=== PATIENT | male | born 1945 | race Caucasian/White ===

== ENCOUNTER → 2020-10-13 | Outpatient (CLI) | payer MEDICARE, OTHER ==
[~2020-10-13] MED LIST: 24 HOUR ALLER15.8 ML INH; AMIO200 PO; ASPI325 PO; ATOR10 PO; Aspirin EC81 MG PO; CLARITIN10 MG PO; DIGO.25 PO; DULO30 PO; ELIQUIS5 MG PO; ESOM20 PO; FOLI1 PO; LISI20 PO; LISI5 PO; MULTI VITAMIN1 EACH PO; Metoprolol Tar100 MG PO; NASACORT10.8 ML NS; TAMS.4ER PO; THIA100 PO; TRAZ50 PO; XARELTO20 MG PO
== END | disposition home or self-care (01) ==
LOC: PLD 08:21 → LAB SHORT 08:21
DX: R23.4 Changes in skin texture (principal)
CPT/HCPCS: 88305; 88312; 88313

== ENCOUNTER → 2021-03-04 | Outpatient (CLI) | payer MEDICARE, OTHER ==
[2021-03-04 16:08] LABS: Anion Gap 9 mmol/L (6-16); Blood Urea Nitrogen 10 mg/dL (8-24); Bun/Creatinine Ratio 11.5 (12.0-20.0); CO2, Blood 26 mmol/L (21-32); Calcium, Blood 8.4 mg/dL (8.5-10.1); Chloride, Blood 96 mmol/L (98-108); Creatinine, Blood 0.87 mg/dL (0.60-1.20); Glomerular Filtration Rate >60 (60-); Glucose, Blood 107 mg/dL (70-99); Potassium, Blood 4.1 mmol/L (3.5-5.5); Sodium, Blood 131 mmol/L (136-145)
== END ==
LOC: LAB SHORT 15:30 → LAB 15:30
PROVIDERS: Physician Assistant
DX: R22.43 Localized swelling, mass and lump, lower limb, bilateral (principal); R06.00 Dyspnea, unspecified; R06.01 Orthopnea; R05 Cough
CPT/HCPCS: 36415; 80048; 83880

== ENCOUNTER 2021-08-08 15:46 | Emergency (ER) | payer MEDICARE, OTHER ==
[~2021-08-08] VITALS: Ht 172.7 cm; Wt 90.7 kg
[2021-08-08 17:57] LABS: Anion Gap 5 mmol/L (6-16); Blood Urea Nitrogen 11 mg/dL (8-24); Bun/Creatinine Ratio 12.1 (12.0-20.0); CO2, Blood 29 mmol/L (21-32); Calcium, Blood 8.9 mg/dL (8.5-10.1); Chloride, Blood 99 mmol/L (98-108); Creatinine, Blood 0.91 mg/dL (0.60-1.20); Glomerular Filtration Rate >60 (60-); Glucose, Blood 107 mg/dL (70-99); Potassium, Blood 4.1 mmol/L (3.5-5.5); Sodium, Blood 133 mmol/L (136-145)
== END 2021-08-08 19:36 | disposition home or self-care (01) ==
LOC: ER 15:46
PROVIDERS: Physician Assistant
DX: S22.31XA Fracture of one rib, right side, initial encounter for closed fracture (principal); S32.019A Unspecified fracture of first lumbar vertebra, initial encounter for closed fracture; I25.10 Atherosclerotic heart disease of native coronary artery without angina pectoris; I11.0 Hypertensive heart disease with heart failure; I50.22 Chronic systolic (congestive) heart failure; I48.20 Chronic atrial fibrillation, unspecified; N40.0 Benign prostatic hyperplasia without lower urinary tract symptoms; K21.9 Gastro-esophageal reflux disease without esophagitis; Z87.891 Personal history of nicotine dependence; Z79.899 Other long term (current) drug therapy; Z79.01 Long term (current) use of anticoagulants; W18.2XXA Fall in (into) shower or empty bathtub, initial encounter
CPT/HCPCS: 72080; 74177; 80048; A9270; Q9967

== ENCOUNTER → 2021-10-14 | Outpatient (CLI) | payer MEDICARE, OTHER | END | disposition home or self-care (01) | LOC: LAB SHORT 11:24 → LAB 11:24 | DX: C44.319 Basal cell carcinoma of skin of other parts of face (principal) | CPT/HCPCS: 88305 ==

== ENCOUNTER → 2022-03-02 | Outpatient (CLI) | payer MEDICARE, OTHER | END | disposition home or self-care (01) | LOC: PLD 08:36 | DX: D48.5 Neoplasm of uncertain behavior of skin (principal) ==

== ENCOUNTER 2022-11-07 10:22 | Inpatient (IN) | payer MEDICARE, OTHER ==
[~2022-11-07] VITALS: Ht 172.7 cm; Wt 85.4 kg
[2022-11-07 11:36] LABS: BASOPHILS ABSOLUTE AUTO 0.08 K/mm3 (0.00-0.23); BASOPHILS PERCENT AUTO 1 % (0-2); EOSINOPHILS ABSOLUTE AUTO 0.16 K/mm3 (0.00-0.68); EOSINOPHILS PERCENT AUTO 2 % (0-6); Hematocrit 37.4 % (37.0-53.0); Hemoglobin 12.5 g/dL (13.5-17.5); IMMATURE GRAN ABSOLUTE AUTO 0.04 K/mm3 (0.00-0.10); IMMATURE GRAN PERCENT AUTO 1 % (0-1); LYMPHOCYTES ABSOLUTE AUTO 1.05 K/mm3 (0.84-5.20); LYMPHOCYTES PERCENT AUTO 14 % (21-46); MONOCYTES ABSOLUTE AUTO 0.81 K/mm3 (0.16-1.47); MONOCYTES PERCENT AUTO 11 % (4-13); Mean Corpuscular HGB 27.4 pg (26.0-34.0); Mean Corpuscular HGB Conc 33.4 g/dL (31.5-36.5); Mean Corpuscular Volume 82 fL (80-100); Mean Platelet Volume 9.4 fL (9.1-12.4); NEUTROPHILS ABSOLUTE AUTO 5.19 K/mm3 (1.96-9.15); NEUTROPHILS PERCENT AUTO 71 % (41-73); Platelet Count 261 K/mm3 (150-400); RDW Coefficient Variation 14.3 % (11.7-14.2); RDW Standard Deviation 42.7 fL (35.1-46.3); Red Blood Cell Count 4.56 M/mm3 (4.30-5.90); White Blood Cell Count 7.33 K/mm3 (4.00-11.30)
[2022-11-07 11:55] LABS: Magnesium, Blood 1.8 mg/dL (1.6-2.4)
[2022-11-07 12:07] LABS: Source, Urine Clean Catch
[2022-11-07 12:08] LABS: Albumin, Blood 3.5 g/dL (3.4-5.0); Albumin/Globulin Ratio 0.9 (0.8-1.8); Bilirubin, Total 1.2 mg/dL (0.1-1.0); Bun/Creatinine Ratio 10.6 (12.0-20.0); Calcium, Blood 8.7 mg/dL (8.5-10.1); Creatinine, Blood 0.76 mg/dL (0.60-1.20); Globulin, Blood 3.8 g/dL (2.2-4.0); Phosphorus, Blood 3.1 mg/dL (2.5-4.9); Potassium, Blood 4.3 mmol/L (3.5-5.5); Total Protein, Blood 7.3 g/dL (6.4-8.2)
[2022-11-07 12:09] LABS: Appearance, Urine Clear (Clear); Bilirubin, Urine Neg (Neg); Blood, Urine Neg (Neg); Color, Urine Yellow (P-Yellow); Glucose Qualitative, Urine Neg (Neg); Ketones, Urine Neg (Neg); Leukocyte Esterase, Urine Neg (Neg); Nitrite, Urine Neg (Neg); Protein, Urine Neg (Neg); Urobilinogen, Urine NORM (Normal)
[2022-11-07] MEDS ORDERED: [UNRECOGNIZED DRUG - OTHER] TP (13:15)
[2022-11-07] MEDS ORDERED: FLUTICASONE-SA1 EAC1 INH (13:16)
[2022-11-07] MEDS ORDERED: FURO40 PO (13:17)
[2022-11-07] MEDS ORDERED: FOLI1 PO (13:17)
[2022-11-07] MEDS ORDERED: METO100ER PO ×2 (13:19→17:34)
[2022-11-07] MEDS ORDERED: POTASSIUM CHLO20 ME1 PO (13:20)
[2022-11-07 16:59] VITALS: BP 121/71
[2022-11-07] MEDS ORDERED: ATOR10 PO (17:26)
[2022-11-07 17:36] LABS: Bun/Creatinine Ratio 10.2 (12.0-20.0); Calcium, Blood 8.8 mg/dL (8.5-10.1); Creatinine, Blood 0.79 mg/dL (0.60-1.20)
[2022-11-07] MEDS ORDERED: Fibercon625 MG PO (17:37)
[2022-11-07] MEDS ORDERED: B-12500 MC2 PO (17:39)
[2022-11-07] MEDS ORDERED: Vitamin D1000 UNI1 PO (17:40)
--- NOTE | 2022-11-07 18:39 | NUR ---
ADMIT NOTE PATIENT NEW ADMIT TO UNIT FORM ER FOR LOW SODIUM AND AMS. ALERT AND ABLE TO SBA TRANSFER TO BED, VERY UNSTEADY GAIT. SETTLED IN BED, BED ALARM ON. URINAL AND BSC NEARBY. IV THIAMINE STARTED. SPOUSE AND FAMILY PRESENT FOR A COUPLE HOURS. TOLERATING WATER BUT REFUSED CARDIAC DINNER. TELE AFIB IN 90S, ALL OTHER VSS AND WNL. CONFUSED ABOUT WHY HE IS IN HOSPITAL, STUBBORN AND DOES NOT FOLLOW DIRECTIONS. DOES NOT CALL APPROPRIATELY AND ATTEMPTS TO GET OUT OF BED WITHOUT CALLING. TWO ATTEMPTS TO URINATE AT BEDSIDE WITHOUT SUCCESS. MODERATE EDEMA TO BLE. ADMIT HISTORY COMPLETE.
[2022-11-07 20:00] VITALS: BP 117/60
[2022-11-08 02:41] LABS: BASOPHILS ABSOLUTE AUTO 0.07 K/mm3 (0.00-0.23); BASOPHILS PERCENT AUTO 1 % (0-2); EOSINOPHILS ABSOLUTE AUTO 0.11 K/mm3 (0.00-0.68); EOSINOPHILS PERCENT AUTO 2 % (0-6); Hematocrit 34.3 % (37.0-53.0); Hemoglobin 11.7 g/dL (13.5-17.5); IMMATURE GRAN ABSOLUTE AUTO 0.01 K/mm3 (0.00-0.10); IMMATURE GRAN PERCENT AUTO 0 % (0-1); LYMPHOCYTES ABSOLUTE AUTO 1.22 K/mm3 (0.84-5.20); LYMPHOCYTES PERCENT AUTO 18 % (21-46); MONOCYTES ABSOLUTE AUTO 0.81 K/mm3 (0.16-1.47); MONOCYTES PERCENT AUTO 12 % (4-13); Mean Corpuscular HGB 27.7 pg (26.0-34.0); Mean Corpuscular HGB Conc 34.1 g/dL (31.5-36.5); Mean Corpuscular Volume 81 fL (80-100); Mean Platelet Volume 9.2 fL (9.1-12.4); NEUTROPHILS ABSOLUTE AUTO 4.72 K/mm3 (1.96-9.15); NEUTROPHILS PERCENT AUTO 68 % (41-73); Platelet Count 238 K/mm3 (150-400); RDW Coefficient Variation 14.5 % (11.7-14.2); RDW Standard Deviation 42.3 fL (35.1-46.3); Red Blood Cell Count 4.22 M/mm3 (4.30-5.90); White Blood Cell Count 6.94 K/mm3 (4.00-11.30)
[2022-11-08 03:08] LABS: Albumin, Blood 3.2 g/dL (3.4-5.0); Bilirubin, Total 1.2 mg/dL (0.1-1.0); Bun/Creatinine Ratio 9.6 (12.0-20.0); Calcium, Blood 8.3 mg/dL (8.5-10.1); Creatinine, Blood 0.73 mg/dL (0.60-1.20); Globulin, Blood 3.3 g/dL (2.2-4.0); Potassium, Blood 3.8 mmol/L (3.5-5.5); Total Protein, Blood 6.5 g/dL (6.4-8.2)
[2022-11-08 04:00] VITALS: BP 106/58
--- NOTE | 2022-11-08 06:23 | NUR ---
SHIFT SUMMARY PT ALERT, ORIENTATION REMAINS THE SAME; PT UNABLE TO IDENTIFY DATE/TIME OR SITUATION, PLACE. PT ORIENTED TO SELF AND PERSON. PT ABLE TO FOLLOW COMMANDS AND ABLE TO MAKE NEEDS KNOWN MOST OF THE TIME. PT ABLE TO BE REORIENTED BUT REQUIRES REORIENTATION FREQUENTLY. VSS THROUGHOUT SHIFT. PT REMAINS ON RA; SPO2 >96%. PT DENIES CP, PRESSURE OR SOB. PT DENIES N/V, DIZZINESS OR LIGHTHEADNESS. PT UP TO USE RESTROOM FREQUENTLY, ABLE TO VOID BUT W/HX OF BPH IS DIFFICULT AT TIMES. PT GAIT IMPROVED SINCE PREVIOUS SHIFT, PT AMBULATING TO RESTROOM W/MINIMAL ASSISTANCE, SUPERVISION AND CORD MANAGEMENT. NO BM THIS SHIFT. PT NOT USING CALL LIGHT TO VERBALIZE NEEDS, PT UP FREQUENTLY OUT OF BED. BED ALARM ON. PT PULLED HIS IV, NEW IV PLACED AND SINCE PT HAS NOT TRIED TO PULL AT IV. PT SLEPT ON AND OFF THROUGHOUT SHIFT. WILL UPDATE ONCOMING RN.
[2022-11-08 07:47] VITALS: BP 125/85
--- NOTE | 2022-11-08 09:11 | NUR ---
AM NOTE: PATIENT ALERT AND ORIENTED X2-3. FORGETFULL, NOT USING CALL LIGHT. IRRITATED WITH CARES. DENIES NUMBNESS/TINGLING. PERRLA. UP WITH SBA TO BATHROOM. TELE SHOWING AFIB WITH HR 90-100'S. DENIES CHEST PAIN/PRESSURE/PALPITATIONS. BP STABLE. PPP. NO SIGNS OF EDEMA. ON ROOM AIR, LUNGS SOUNDING CLEAR. DENIES COUGH. DENIES ABDOMINAL PAIN/NAUSEA. NOT INTERSETED IN EATING BREAKFAST THIS MORNING. DRINKING SMALL AMOUNTS OF WATER. PATIENT HAVING TROUBLE VOIDING, GOING FREQUENTLY AND ONLY VOIDING SMALL AMOUNTS. PATIENT STATES THIS IS HIS NORMAL AT HOME AND CONFIRMS. BLADDER SCAN DONE THIS MORNING SHOWING 287. BOWEL MOVEMENT X1 THIS MORNING. PATIENT NOT WILLING TO USE URINAL TO VOID AND UNABLE TO USE HAT. AT BEDSIDE THIS MORNING AND UPDATED. SKIN OVERALL C/D/I. WEARING GLASSES. BED ALARM IN PLACE. NS INFUSING PER EMAR.
[2022-11-08 11:01] VITALS: BP 117/91
--- NOTE | 2022-11-08 12:20 | NUR ---
Upon receiving a referral for spiritual care, I visit the patient. Patient tells me about his 42 yrs in [employer], about his falls and bumping into diaz, and about his concerns about his medical condition. He speaks about the differing belief systems that he and his , Yanna, have. She is Sabianist and he is Religious of [employer]. He states that it continue to be a source of friction. I provide empathic listening, a calming presence and therapeutic alliance establishment. Patient responded well and showed signs of an elevated mood. I will cotinue to remain available to patient and family.
[2022-11-08 12:43] VITALS: BP 135/95
--- NOTE | 2022-11-08 12:53 | NUR ---
TRANSFER TO MEDICAL: NO ACUTE CHANGES, SEE PREVIOUS NOTE. NOON VITAL STABLE. CIWA RANGING FROM 2-3. PATIENT REMAINS FORGETFUL/CONFUSED. BED ALARM IN PLACE. ROXANNE AT BESIDE THIS MORNING AND UPDATED ON TRANSFER. NS CONTINUES AT ORDERED RATE. PATIENT TRANSFERRED UP TO MEDICAL VIA WHEELCHAIR WITH ALL PERSONAL BELONGINGS, INCLUDING CELLPHONE. REPORTED OFF TO PRATEEK.
--- NOTE | 2022-11-08 13:54 | NUR ---
PT TX TO ROOM 351 AND PLACED ON CAMERA DUE TO FALL RISK AND PULLING AT IV'S. REPORT RECEIVED FROM RODRICK RN/FRANCI STUDENT RN. PT ARRIVED VIA WC, A/O X 2, ONE ASSIST TO BED. PT ORIENTED TO ROOM AND CALL LIGHT. PT AWAKE AND ALERT IN NO APPARENT DISTRESS. WAS UNABLE TO STATE WHY HE WAS ADMITTED TO HOSPITAL AND DATE AND TIME. PT ORIENTED TO SITUATION AND TIME. PT REFUSED OFFER OF A SNACK HE REPORTED HE HAS NO APPETITE AND DID NOT EAT LUNCH. IV FLUIDS NS RUNNING AT 125.
--- NOTE | 2022-11-08 18:54 | NUR ---
SHIFT SUMMARY: PT A/O X 2, ONE ASSIST DUE TO IV LINES WITH WALKER. PT STEADY ON FEET. PLEASANT AND COOPERATIVE WITH CARE. PT HAS BEEN UP AND DOWN TO THE BATHROOM TODAY, CONTINENT OF URINE. HE DID HAVE 2 EPISODES OF DIARRHEA WHICH HE DID NOT MAKE TO BATHROOM DUE TO URGENCY. IMMODIUM ORDERED BY MD. PT SODIUM 123. PT NOT EATING OR DRINKING FLUIDS WELL. GATORADE GIVEN THIS EVENING. HE DID DRINK ONE FULL ENSURE.
[2022-11-08 19:50] VITALS: BP 115/62
[2022-11-09 04:26] VITALS: BP 126/86
[2022-11-09 04:32] LABS: BASOPHILS ABSOLUTE AUTO 0.06 K/mm3 (0.00-0.23); BASOPHILS PERCENT AUTO 1 % (0-2); EOSINOPHILS ABSOLUTE AUTO 0.14 K/mm3 (0.00-0.68); EOSINOPHILS PERCENT AUTO 2 % (0-6); Hematocrit 35.5 % (37.0-53.0); Hemoglobin 11.8 g/dL (13.5-17.5); IMMATURE GRAN ABSOLUTE AUTO 0.02 K/mm3 (0.00-0.10); IMMATURE GRAN PERCENT AUTO 0 % (0-1); LYMPHOCYTES ABSOLUTE AUTO 1.27 K/mm3 (0.84-5.20); LYMPHOCYTES PERCENT AUTO 18 % (21-46); MONOCYTES ABSOLUTE AUTO 0.69 K/mm3 (0.16-1.47); MONOCYTES PERCENT AUTO 10 % (4-13); Mean Corpuscular HGB 27.4 pg (26.0-34.0); Mean Corpuscular HGB Conc 33.2 g/dL (31.5-36.5); Mean Corpuscular Volume 82 fL (80-100); Mean Platelet Volume 9.3 fL (9.1-12.4); NEUTROPHILS ABSOLUTE AUTO 4.76 K/mm3 (1.96-9.15); NEUTROPHILS PERCENT AUTO 69 % (41-73); Platelet Count 250 K/mm3 (150-400); RDW Coefficient Variation 14.5 % (11.7-14.2); RDW Standard Deviation 43.3 fL (35.1-46.3); Red Blood Cell Count 4.31 M/mm3 (4.30-5.90); White Blood Cell Count 6.94 K/mm3 (4.00-11.30)
[2022-11-09 04:56] LABS: Bun/Creatinine Ratio 7.8 (12.0-20.0); Calcium, Blood 8.5 mg/dL (8.5-10.1); Creatinine, Blood 0.77 mg/dL (0.60-1.20); Potassium, Blood 3.9 mmol/L (3.5-5.5)
--- NOTE | 2022-11-09 06:02 | NUR ---
A/OX3-4 (ANSWERED ALL QUESTIONS CORRECTLY AT SHIFT START); FORGETFUL, INTERMITTENTLY WORSE CONFUSION (FLUCTUATES), COOPERATIVE CURRENTLY, IRRITABLE AT TIMES. DENIES PAIN / DENIES FEELING NAUSEATED. TELE: A-FIB 70s 1X ASSIST TO BATHROOM. SLEEP PROMOTED. CALL LIGHT IN REACH; ENCOURAGED TO MAKE NEEDS KNOWN. BED ALARM SET.
[2022-11-09 07:48] VITALS: BP 121/77
[2022-11-09 15:06] VITALS: BP 128/82
--- NOTE | 2022-11-09 16:46 | NUR ---
Vicki is lying in bed and alert. Patient's spouse, Yanna, is bedside. THey both talk at length about their lives, their hobbies and the patient's frustration that he has to stay another night in the hospital. I provide therapeutic listening and a calming spirit. PAtient and Yanna responded well and showed signs of elevated moods.
[2022-11-09 19:47] VITALS: BP 117/75
--- NOTE | 2022-11-09 20:07 | NUR ---
SHIFT SUMMARY: PT A/O X 2-3, STANDBY ASSIST, PLEASANT AND COOPERATIVE WITH CARES. PT HAS POOR APPETITE AND DRINKS MINIMAL AMOUNT OF FLUIDS. PT GIVEN GATORADE AND ENCOURAGED TO DRINK THROUGHOUT THE DAY. NS RUNNING AT 150 ML/HR CURRENTLY. NO EVENTS OF DIARRHEA TODAY.
[2022-11-10 02:07] VITALS: BP 141/118
--- NOTE | 2022-11-10 05:16 | NUR ---
PATIENT IS ALERT AND ORIENTED X3, NOT TO DATE. MENTAION IS CLEARING UP PER DAY NURSE. NO INCREASE IN CIWA SCORE, REMIANED AT THREE ALL NIGHT. LUNGS ARE CLEAR BUT DIM, TELE AFIB WITH A 2.16 SEC PAUSE, ASYMPTMATIC. UP WITH STAND BY ASSIST TO MANAGE LINES. IV INFUSING NS AT 150. NO OTHER ISSUES TO REPORT.
[2022-11-10 07:19] VITALS: BP 154/87
[2022-11-10 08:22] LABS: BASOPHILS ABSOLUTE AUTO 0.06 K/mm3 (0.00-0.23); BASOPHILS PERCENT AUTO 1 % (0-2); EOSINOPHILS ABSOLUTE AUTO 0.11 K/mm3 (0.00-0.68); EOSINOPHILS PERCENT AUTO 2 % (0-6); Hemoglobin 11.3 g/dL (13.5-17.5); IMMATURE GRAN ABSOLUTE AUTO 0.03 K/mm3 (0.00-0.10); IMMATURE GRAN PERCENT AUTO 0 % (0-1); LYMPHOCYTES PERCENT AUTO 16 % (21-46); MONOCYTES ABSOLUTE AUTO 0.62 K/mm3 (0.16-1.47); MONOCYTES PERCENT AUTO 9 % (4-13); Mean Corpuscular HGB Conc 33.2 g/dL (31.5-36.5); Mean Corpuscular Volume 84 fL (80-100); Mean Platelet Volume 9.4 fL (9.1-12.4); NEUTROPHILS ABSOLUTE AUTO 4.86 K/mm3 (1.96-9.15); NEUTROPHILS PERCENT AUTO 72 % (41-73); Platelet Count 222 K/mm3 (150-400); RDW Standard Deviation 46.3 fL (35.1-46.3); Red Blood Cell Count 4.04 M/mm3 (4.30-5.90); White Blood Cell Count 6.78 K/mm3 (4.00-11.30)
[2022-11-10 08:45] LABS: Albumin, Blood 3.3 g/dL (3.4-5.0); Albumin/Globulin Ratio 0.9 (0.8-1.8); Bilirubin, Total 1.2 mg/dL (0.1-1.0); Bun/Creatinine Ratio 5.3 (12.0-20.0); Calcium, Blood 8.2 mg/dL (8.5-10.1); Creatinine, Blood 0.75 mg/dL (0.60-1.20); Globulin, Blood 3.6 g/dL (2.2-4.0); Potassium, Blood 3.8 mmol/L (3.5-5.5); Thyroid Stimulating Hormone 3.82 uIU/mL (0.360-4.800); Total Protein, Blood 6.9 g/dL (6.4-8.2)
[2022-11-10] MEDS ORDERED: SODCHL1 PO (12:03)
[2022-11-10] MEDS ORDERED: POLYTRIM EYE DR10 M1 BOTHEYES (12:04)
--- NOTE | 2022-11-10 12:58 | NUR ---
DISCHARGE: PT D/C AT 1300 VIA WHEELCHAIR WITH AND SON. BOTH IV REMOVED W/O COMPLICATIONS. TELE SENT BACK. MEDICATIONS FAXED TO [facility]. ALL BELONGINGS SENT WITH PT.
--- NOTE | 2022-11-10 20:15 | NUR ---
PATIENT WAS DISCHARGED VIA WHEELCHAIR, WITH FAMILY AND BELONGINGS AT SIDE. DISCHARGE PAPERWORK AND EDUCATION WAS COMEPLETED, IV'S WERE OUT, AND PATIENT WAS IN GOOD SPIRITS TO LEAVE. UNIT CHARGE ESCORTED PATIENT OND FAMILY TO CAR. NO OTHER ISSUES TO REPORT.
== END 2022-11-10 12:56 | disposition home or self-care (01) | DRG 640 ==
LOC: ER 10:22 → ERHOLD 13:44 → PCU 16:43 → MEDS 11-08 12:37 → ENPENDDIS 11-10 11:57 → MEDS 11-10 12:56
PROVIDERS: Physician Assistant; ADMIT Internal Medicine
PROC: HZ2ZZZZ Detoxification Services for Substance Abuse Treatment (ICD-10-PCS; principal; 2022-11-07)
DX: E87.1 Hypo-osmolality and hyponatremia (principal); G93.41 Metabolic encephalopathy; I48.20 Chronic atrial fibrillation, unspecified; I50.32 Chronic diastolic (congestive) heart failure; F10.20 Alcohol dependence, uncomplicated; I25.10 Atherosclerotic heart disease of native coronary artery without angina pectoris; I11.0 Hypertensive heart disease with heart failure; N40.0 Benign prostatic hyperplasia without lower urinary tract symptoms; F41.9 Anxiety disorder, unspecified; F32.A Depression, unspecified; K21.9 Gastro-esophageal reflux disease without esophagitis; D64.9 Anemia, unspecified; I87.2 Venous insufficiency (chronic) (peripheral); Y90.0 Blood alcohol level of less than 20 mg/100 ml; Z87.19 Personal history of other diseases of the digestive system; Z86.010 Personal history of colon polyps; Z90.49 Acquired absence of other specified parts of digestive tract; Z90.89 Acquired absence of other organs; Z98.890 Other specified postprocedural states; Z87.891 Personal history of nicotine dependence; Z88.8 Allergy status to other drugs, medicaments and biological substances; Z79.01 Long term (current) use of anticoagulants; Z79.899 Other long term (current) drug therapy
CPT/HCPCS: 36415; 70450; 80048; 80053; 80400; 81003; 82140; 82533; 83690; 83735; 83930; 83935; 84100; 84295; 84300; 84443; 85025; 94640; 94664; 94760; 94762; 96365; 97116; 97161; 97166; 97530; 99285-25; A9270; G0480; J0834; J3411; J7030; J7050

== ENCOUNTER → 2023-03-16 | Outpatient (CLI) | payer MEDICARE, OTHER ==
[~2023-03-16] MED LIST changes: +B-12500 MC2 PO; +FLUTICASONE-SA1 EAC1 INH; +FURO40 PO; +Fibercon625 MG PO; +METO100ER PO; +POLYTRIM EYE DR10 M1 BOTHEYES; +POTASSIUM CHLO20 ME1 PO; +SODCHL1 PO; +Vitamin D1000 UNI1 PO; +[UNRECOGNIZED DRUG - OTHER] TP
== END ==
LOC: PLD 12:01 → LAB SHORT 12:01
DX: D48.5 Neoplasm of uncertain behavior of skin (principal)
CPT/HCPCS: 88305